=== PATIENT | male | born 1940 | race Caucasian/White ===

== ENCOUNTER 2016-05-10 09:40 | Day surgery (SDC) ==
[2016-05-10] MEDS ORDERED: TYLENOL ONE (10:13)
[2016-05-10] MEDS ORDERED: BENADRYL ONE (10:13)
[2016-05-10] MEDS ORDERED: NS 250 ML ONE (10:14)
[2016-05-10 11:35] VITALS: BP 135/74
== END 2016-05-10 11:30 | disposition home or self-care (01) ==
LOC: OPS 09:40
PROVIDERS: ATTEND Internal Medicine Hematology & Oncology
DX: D69.6 Thrombocytopenia, unspecified (principal)
CPT/HCPCS: 36415; 36430; 86850; 86900; 86901; J7050; P9035

== ENCOUNTER 2016-05-16 05:14 | Emergency (ER) ==
[2016-05-16] MEDS ORDERED: NS 500 ML IV ONE (05:33)
--- NOTE | 2016-05-16 05:39 | PROVIDER DOCUMENTATION ---
HPI-General Adult - General Chief Complaint: Nausea/Vomiting Stated Complaint: FALL/LEFT SHOULDER PAIN Time Seen by Provider: 05/16/16 05:23 Source: family, EMS Allergies/Adverse Reactions: Patient Allergies Allergy/AdvReac Type Severity Reaction Status Date / Time No Known Allergies Allergy Verified 05/16/16 05:57 Home Medications: Albuterol Sulfate [Proair Hfa] 1 - 2 puff INH PRN PRN 05/16/16 Alprazolam [Xanax] 0.25 mg PO Q8-12H PRN PRN 05/16/16 Dexamethasone 4 mg PO TID 05/16/16 Docusate Sodium [Stool Softener] 100 mg PO BID 05/16/16 Dronabinol 5 mg PO BID 05/16/16 EZETIMIBE/SIMVAstatin [Vytorin 10/40 mg] 1 each PO QHS 05/16/16 Felodipine [Felodipine ER] 10 mg PO DAILY 05/16/16 Fenofibrate 160 mg PO QHS 05/16/16 Hydrocodone/Acetaminophen [[place] 7.5-325 Tablet] 1 each PO Q6-8H PRN PRN Losartan/Hydrochlorothiazide [Losartan-Hctz 100-12.5 mg Tab] 1 each PO DAILY 03/22 Montelukast [Singulair] 10 mg PO DAILY 05/16/16 Multivitamins/Minerals [Centrum Silver] 1 each PO DAILY 05/16/16 Nystatin Susp [Mycostatin Susp] 1 each PO 4XDAY 05/16/16 Ondansetron HCl [Zofran] 4 mg PO Q6-8H PRN PRN 05/16/16 Pantoprazole [Protonix] 40 mg PO DAILY 05/16/16 Sertraline [Zoloft] 50 mg PO DAILY 05/16/16 [place] 1 each PO QHS 05/16/16 - History of Present Illness -Gen Adult Nature of Presenting Problems: pt has a known hx of brain cancer and earlier today he stopped being able to talk and developed vomiting and marked generalized fatigued. No fevers. He has recently stopped chemo secondary to decreased platelets which required a platelet infusion recently. He is still receiving radiation treatment. Apparently family was attempting to move him into a chair walker when he was unable to help and they lower him unto the ground Review of Systems - Adult - REVIEW OF SYSTEMS - ADULT ROS:: ROS per family Constitutional: denies: fever Eyes: denies: discharge Ears, Nose, Mouth & Throat: reports: other (noticed some bleeding earlier from left nostril which stopped spont). denies: ear pain, sinus problem, throat pain Cardiovascular: denies: chest pain Respiratory: denies: cough, shortness of breath Gastrointestinal: reports: poor appetite, vomiting (with specks of blood in it) . denies: abdominal pain, rectal bleeding Genitourinary: denies: dysuria, frequency, hematuria Musculoskeletal: reports: other (chronic left hip and shoulder pain) Integumentary: reports: other (eccymosis from this morning's slide out of the chair) Neurological: reports: other (new onset difficulty talking) All Other Systems: Reviewed and Negative Past History - Adult - PAST MEDICAL HISTORY-ADULT Review of Records: reports: Old Records Reviewed, Nursing Assessment Review, Medications Reviewed, Social history reviewed & non-contributory. Physical Exam-General - PHYSICAL EXAM-ADULT Initial Vital Signs Reviewed: Yes - CONSTITUTIONAL General Appearance: alert, no apparent distress - EYES Eyes: negative: pink conjunctivae (pale), scleral icterus - HEAD, EARS, NOSE, MOUTH & THROAT HENMT: normocephalic/atraumatic, pharynx normal, other (dried blood in left nares) - NECK Neck: non-tender, full range of motion, supple, normal inspection. negative: lymphadenopathy - RESPIRATORY Respiratory: chest non-tender, lungs clear, normal breath sounds, no pleuratic chest pain, no respiratory distress, no accessory muscle use - CARDIOVASCULAR Cardiovascular: regular rate, rhythm, no edema, no murmur - GASTROINTESTINAL (ABDOMEN) Abdominal Exam: normal bowel sounds, non tender, soft, no organomegaly, no pulsatile mass - MUSCULOSKELETAL Back Exam: no CVA tenderness, no vertebral tenderness, other (a vertical swath of ecchymosis on right side of posterior thorax). negative: normal inspection Extremity: normal inspection, no pedal edema, no calf tenderness - SKIN Integumentary: normal color, normal turgor, warm/dry - NEUROLOGIC Neurologic: aphasia, other (pt is none verbal. He can move legs but has generalized weakness). negative: no motor/sensory deficits - PSYCHIATRIC Psych/Mental Status: other (unable to test because of inablility to talk) Progress - PLAN OF CARE/RESULTS Progress/Plan/Lab Results: Laboratory Tests 05/16/16 05/16/16 05:43 05:43 WBC 8.06 RBC 3.97 L Hgb 12.6 L Hct 35.4 L MCV 89.2 MCH 31.7 H MCHC 35.6 RDW Std Deviation 14.4 Plt Count < 6 L* MPV Not Reportable Immature Gran % (Auto) 1.0 H Neut % (Auto) 91.6 H Lymph % (Auto) 6.5 L [place] % (Auto) 0.5 L Eos % (Auto) 0.4 Baso % (Auto) 0.0 Immature Gran # (Auto) 0.08 H Neut # (Auto) 7.39 H Lymph # (Auto) 0.52 L [place] # (Auto) 0.04 L Eos # (Auto) 0.03 Baso # (Auto) 0.00 Segmented Neutrophils 60 Band Neutrophils 22 H Lymphocytes 12 L Monocytes 2 Pathologist Review Atypical Lymphocytes 4.0 Sodium 128 L Potassium 3.2 L Chloride 87 L Carbon Dioxide 26 Anion Gap 15 BUN 32 H Creatinine 1.4 H Estimated GFR/1.73 m2 50 BUN/Creatinine Ratio 23 Glucose 99 Calculated Osmolality 264 Calcium 9.3 Total Bilirubin 1.19 H AST 23 ALT 24 Alkaline Phosphatase 59 Total Protein 6.0 L Albumin 3.7 Globulin 2.3 Albumin/Globulin Ratio 1.6 Lipase 41 Orders Category Date Time Status CHEST-PORTABLE [RAD] Stat Exams 05/16/16 05:33 Completed HEAD W/O CONTRAST [CT] Stat Exams 05/16/16 05:33 Completed CBC WITH ELECTRONIC DIFF [HEME] Stat Lab 05/16/16 05:43 Completed CMP [COMPREHENSIVE METABOLIC PANEL] [CHEM] Stat Lab 05/16/16 05:43 Completed LIPASE [CHEM] Stat Lab 05/16/16 05:43 Completed 0.9% Sodium Chloride Inj [Ns] 1,000 ml Med 05/16/16 06:44 Discontinued .ROUTE As Directed 0.9% Sodium Chloride Inj [Ns] 1,000 ml Med 05/16/16 06:42 Discontinued IV 200 mls/hr 0.9% Sodium Chloride Inj [Ns] 500 ml Med 05/16/16 05:33 Discontinued IV 999 mls/hr CefTRIAXONE 1 GM/NS [Rocephin 1 gm/Ns] 50 ml Med 05/16/16 06:42 Discontinued IV NOW Ondansetron [Zofran] Med 05/16/16 05:49 Discontinued 4 mg IV NOW ONE Ondansetron [Zofran] Med 05/16/16 05:41 Discontinued 8 mg IV NOW ONE Vital Signs Temp Pulse Resp BP Pulse Ox 05/16/16 06:48 98.3 F 107 H 16 94/57 95 05/16/16 06:14 107 H 16 114/65 93 L 05/16/16 05:45 98.1 F 108 H 19 92/49 91 L No Known Allergies Allergy (Verified 05/16/16 05:57) Albuterol Sulfate [Proair Hfa] 1 - 2 puff INH PRN PRN 05/16/16 Alprazolam [Xanax] 0.25 mg PO Q8-12H PRN PRN 05/16/16 Dexamethasone 4 mg PO TID 05/16/16 Docusate Sodium [Stool Softener] 100 mg PO BID 05/16/16 Dronabinol 5 mg PO BID 05/16/16 EZETIMIBE/SIMVAstatin [Vytorin 10/40 mg] 1 each PO QHS 05/16/16 Felodipine [Felodipine ER] 10 mg PO DAILY 05/16/16 Fenofibrate 160 mg PO QHS 05/16/16 Hydrocodone/Acetaminophen [[place] 7.5-325 Tablet] 1 each PO Q6-8H PRN PRN Losartan/Hydrochlorothiazide [Losartan-Hctz 100-12.5 mg Tab] 1 each PO DAILY 03/22 Montelukast [Singulair] 10 mg PO DAILY 05/16/16 Multivitamins/Minerals [Centrum Silver] 1 each PO DAILY 05/16/16 Nystatin Susp [Mycostatin Susp] 1 each PO 4XDAY 05/16/16 Ondansetron HCl [Zofran] 4 mg PO Q6-8H PRN PRN 05/16/16 Pantoprazole [Protonix] 40 mg PO DAILY 05/16/16 Sertraline [Zoloft] 50 mg PO DAILY 05/16/16 [place] 1 each PO QHS 05/16/16 Laboratory 05/16/16 05/16/16 05:43 05:43 WBC 8.06 RBC 3.97 L Hgb 12.6 L Hct 35.4 L MCV 89.2 MCH 31.7 H MCHC 35.6 RDW Std Deviation 14.4 Plt Count < 6 L* MPV Not Reportable Immature Gran % (Auto) 1.0 H Neut % (Auto) 91.6 H Lymph % (Auto) 6.5 L [place] % (Auto) 0.5 L Eos % (Auto) 0.4 Baso % (Auto) 0.0 Immature Gran # (Auto) 0.08 H Neut # (Auto) 7.39 H Lymph # (Auto) 0.52 L [place] # (Auto) 0.04 L Eos # (Auto) 0.03 Baso # (Auto) 0.00 Segmented Neutrophils 60 Band Neutrophils 22 H Lymphocytes 12 L Monocytes 2 Pathologist Review Atypical Lymphocytes 4.0 Sodium 128 L Potassium 3.2 L Chloride 87 L Carbon Dioxide 26 Anion Gap 15 BUN 32 H Creatinine 1.4 H Estimated GFR/1.73 m2 50 BUN/Creatinine Ratio 23 Glucose 99 Calculated Osmolality 264 Calcium 9.3 Total Bilirubin 1.19 H AST 23 ALT 24 Alkaline Phosphatase 59 Total Protein 6.0 L Albumin 3.7 Globulin 2.3 Albumin/Globulin Ratio 1.6 Lipase 41 - EKG 1 Time of EKG reading by physician:: 05:42 EKG Interpretation (*Must complete 3 of following elements*): Abnormal Rate: 111 Rhythm: sinus tach [place]: normal QRS: normal [place] Interval: normal ST Wave: non-specific ST changes Prior EKG Comparison: no prior EKG - CT/MRI 1 CT Study: Head (brain cencer with bleed) Impression: Abnormal Departure - Departure Time of Disposition Order: 05:35 DIAGNOSIS: Brain bleed Brain malignant neoplasm Qualifiers: 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
[2016-05-16] MEDS ORDERED: ZOFRAN IV ONE ×2 (05:41→05:49)
[2016-05-16 06:22] LABS: EOS# 0.03 X1000 (0.0-0.7); EOS% 0.4 % (0.0-10.0); HEMATOCRIT 35.4 % (42.0-52.0); HEMOGLOBIN 12.6 g/dL (14.0-18.0); IMM GRAN# 0.08 X1000 (0.0-0.04); LYMPH# 0.52 X1000 (1.2-3.4); LYMPH% 6.5 % (20.5-51.1); MANUAL DIFF NEEDED? YES; MCH 31.7 PG (27-31); MCHC 35.6 g/dL (33-37); MCV 89.2 FL (81-99); MONO# 0.04 X1000 (0.11-0.59); MONO% 0.5 % (1.7-9.3); NEUT% 91.6 % (42.2-75.2); PLT < 6 X1000 (130-400); RBC 3.97 XMIL (4.7-6.1)
[2016-05-16] MEDS ORDERED: ROCEPHIN 1 GM/NS 50 ML IV ONE (06:42)
[2016-05-16] MEDS ORDERED: NS 1,000 ML IV ONE (06:42)
[2016-05-16] MEDS ORDERED: NS 1,000 ML ONE (06:44)
[2016-05-16 06:49] LABS: ALBUMIN 3.7 g/dL (3.5-5.0); CALCIUM 9.3 mg/dL (8.8-10.2); POTASSIUM 3.2 mmol/L (3.5-5.1); TOTAL BILIRUBIN 1.19 mg/dL (0.20-1.00)
[2016-05-16 07:00] VITALS: BP 94/57
[2016-05-16 07:21] LABS: BANDS 22 % (0-1); LYMPHS 12 % (21-51); MONO 2 % (1-9)
--- NOTE | 2016-05-16 07:42 | Diag Imaging Result Document ---
PROCEDURE NAME: CHEST-PORTABLE - 05/16/2016 AP PORTABLE CHEST AT 0600 HOURS: FINDINGS: The inspiration is somewhat suboptimal. The lungs appear to be clear and the heart and pulmonary vascularity are within normal limits. There are no previous radiographs. IMPRESSION: No evidence of acute disease.
--- NOTE | 2016-05-16 10:31 | Diag Imaging Result Document ---
PROCEDURE NAME: HEAD W/O CONTRAST - 05/16/2016 CT HEAD WITHOUT CONTRAST: COMPARISON: 03/07/2016. FINDINGS: There has been interval increase in size of the known heterogeneous mass involving the bilateral frontal lobes crossing the corpus callosum. 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 It measures approximately 4.7 x 3.5 cm axially. There is high attenuation internally in a patchy distribution suggesting likely internal hemorrhage. There is low attenuation in the frontal lobes bilaterally surrounding the mass. A component of this likely represents vasogenic edema. This has worsened during the interval. There is now mass effect on the foramina of [place] which is causing mild hydrocephalus that has developed during the interval. There is no evidence of acute infarct, given the limited sensitivity of CT versus MRI. No other masses can be appreciated. IMPRESSION: 1. Known frontal midline mass with interval increase in size and likely intralesional patchy hemorrhage with worsening vasogenic edema in the frontal lobes. If not done so already, correlation with MRI with and without contrast is recommended if not contraindicated. 2. Findings consistent with mild obstructive hydrocephalus.
--- NOTE | 2016-05-18 09:51 | EKG Report ---
Test Performed on : 05/16/2016 05:39:41 AM Test Reason : NAUSEA Blood Pressure : / mmHG Vent. Rate : 111 BPM Atrial Rate : 111 BPM P-R Int : 162 ms QRS Dur : 076 ms QT Int : 336 ms P-R-T Axes : 068 045 112 degrees QTc Int : 456 ms Sinus tachycardia. Nonspecific ST and T wave abnormality Abnormal ECG No previous ECGs available Unconfirmed Result
== END 2016-05-16 06:48 | disposition short-term general hospital (02) ==
LOC: EDBD → ED 05:14
DX: I61.9 Nontraumatic intracerebral hemorrhage, unspecified (principal); C71.5 Malignant neoplasm of cerebral ventricle; R94.31 Abnormal electrocardiogram [ECG] [EKG]; R11.2 Nausea with vomiting, unspecified; M25.512 Pain in left shoulder; R53.83 Other fatigue; R04.2 Hemoptysis; R04.0 Epistaxis; Z79.899 Other long term (current) drug therapy; G89.29 Other chronic pain; M25.552 Pain in left hip; S20.221A Contusion of right back wall of thorax, initial encounter
CPT/HCPCS: 70450; 71010; 80053; 83690; 85025; 93005; 96374; 96375; J2405; J7030